=== PATIENT | male | born 1985 | race Caucasian/White ===

== ENCOUNTER 2017-01-18 11:50 | Emergency (ER) | payer OTHER ==
[~2017-01-18] VITALS: Ht 182.9 cm; Wt 72.6 kg
[2017-01-18 11:53] VITALS: BP 139/85
--- NOTE | 2017-01-18 13:57 | ED NECK/BACK PAIN COMPLAINT ---
History of Present Illness General Chief Complaint: Lower Extremity Problems Stated Complaint: LEGS ARE NUMB Source: patient Exam Limitations: no limitations Vital Signs & Intake/Output Vital Signs & Intake/Output Vital Signs Date Time Temp Pulse Resp B/P Pulse O2 O2 Flow FiO2 Ox Delivery Rate 01/18 1153 97.8 62 18 139/85 100 Room Air Room Air Allergies Coded Allergies: amoxicillin (Intermediate, RESP DISTRESS 01/18/17) doxycycline (Intermediate, RESP DISTRESS 01/18/17) Reconcile Medications No Known Home Medications Triage Note: TRIAGE: 31 Y/O MALE PRESENTS C/O BILATERAL LEG NUMBNESS SINCE THIS MORNING UPON WAKING. REPORTS, "I'VE BEEN HAVING ISSUES FOR MONTHS. WHEN I WOKE UP THIS MORNING, I COULDN'T MOVE MY LEGS AND THEY'RE BOTH WEAK RIGHT NOW." HISTORY OF LYME DISEASE. Triage Nurses Notes Reviewed? yes HPI: Darion Ornelas is a 31 yo m w/ herniated disc status post laminectomy L5- S1 and remote Lyme disease presenting to ED for RLE weakness. Patient states he has known herniated disc at levels S1 and mild facet arthropathy and spondylosis at other levels who presents to the ED today for bilateral lower extremity numbness. Patient states that the right leg is worse than the left. He woke up this morning and was unable to move his lower leg or have any sensation of it. After few seconds he states he was able to move it and then able to ambulate. Patient ambulated into the emergency department without any issues. Denies any issues with bowel or bladder function. He urinated normally this morning without any issues and starting or ending stream. He does however endorse increased urinary frequency. No dysuria. Patient states he has been sexually active with 1 partner over the past few weeks and did not use condoms. He does that he has an appointment with Dr. MARTINEZ at [place] in April for possible surgical intervention. Patient denies IV drug use, fevers, chills, abdominal pain, nausea/vomiting/diarrhea, chest pain, shortness of breath or cough. (RONY SOUZA MD) Past History Travel History Traveled to [place] past 21 day No Medical History Any Pertinent Medical History? see below for history Neurological: LYME DISEASE Musculoskeletal: disk herniation Surgical History Surgical History: laminectomy Psychosocial History Tobacco Use: Never used ETOH Use: denies use Illicit Drug Use: denies illicit drug use Family History Hx Contributory? No (RONY SOUZA MD) Review of Systems Review of Systems Constitutional: Reports: weakness. Eyes: Reports: no symptoms. Ears, Nose, Throat, Mouth: Reports: no symptoms. Respiratory: Reports: no symptoms. Cardiovascular: Reports: no symptoms. Gastrointestinal/Abdominal: Reports: no symptoms. Musculoskeletal: Reports: see HPI. Skin: Reports: no symptoms. Neurological/Psychological: Reports: numbness, tingling. Denies: ataxia, paresthesia. All Other Systems: Reviewed and Negative (RONY SOUZA MD) Physical Exam Physical Exam General Appearance: well developed/nourished, no apparent distress, alert, awake Head: atraumatic, normal appearance Eyes: Bilateral: normal appearance, PERRL, EOMI, normal inspection. Ears, Nose, Throat, Mouth: hearing grossly normal Neck: normal inspection, supple, full range of motion Respiratory: normal breath sounds, chest non-tender, no respiratory distress Cardiovascular: regular rate/rhythm Gastrointestinal: normal bowel sounds, soft, non-tender Genital/Rectal: normal genital exam, normal rectal exam, normal rectal tone, bilateral + cremesteric Back: normal inspection, normal range of motion Extremities: non-tender, normal range of motion Straight Leg Raising: Right: Negative. Left: Negative. Sensory: Medial Le: L4R, L4L. Top of Foot: 2: L5R, L5L. Sole of Foot: 2: SIR, DYLLAN. Motor: Deficit L4 Right: No Deficit L4 Left: No Deficit L5 Right: No Deficit L5 Left: No Deficit S1 Right: No Deficit S1 Right: No Walk on Heels: 5: L4 Left, L4 Right. DTR: Deficit L4 Left: No Deficit L4 Right: No Deficit S1 Left: No Deficit S1 Right: No Neurologic/Psych: no motor/sensory deficits, awake, alert, oriented x 3, normal gait, normal mood/affect, welcome center agent II-XII nml as tested Skin: intact, normal color (RONY SOUZA MD) Progress Differential Diagnosis: cauda equina syn, herniated disc, spinal cord inj, T/L spine injury Plan of Care: Orders Procedure Date/time Status CHLAMYDIA-GC DNA PROBE 01/18 1257 Active URINALYSIS 01/18 1257 Complete Laboratory Tests 01/18/17 1300: Urine Color STRAW, Urine Clarity CLEAR, Urine pH 7.5, Ur Specific [place] 1.010, Urine Protein NEG, Urine Ketones NEG, Urine Nitrite NEG, Urine Bilirubin NEG, Urine Urobilinogen 0.2, Ur Leukocyte Esterase NEG, Ur Microscopic EXAM NOT REQUIRED, Urine Hemoglobin NEG, Urine Glucose NEG Microbiology 01/18 1300 URINE ROUT: GC DNA Probe - RECD 01/18 1300 URINE ROUT: Chlamydia DNA Probe (JOHN) - RECD Patient is an otherwise well-appearing 31-year-old male with known disc disease. He endorses lower extremity weakness with the right side being weaker than the other. He approximates the weakness at approximately 50%. However physical exam findings do not support any weakness. Patient has completely normal motor as well as sensory function in bilateral lower extremities. He is able to ambulate around the department to and from the bathroom without issues. He does not fall or have any kind of ataxic gait. He denied any trauma to the area. 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 We'll assess for possible urinary tract infection as the patient does endorse increased urinary frequency will also assess for sexually transmitted infection with a GC probe in the urine given his recent unprotected sex. Patient states he had one chlamydial infection proximally 17 months ago which was treated appropriately. Given patient's otherwise normal neuro exam, encourage symptomatic treatment with physical therapy. Also recommended that the patient will move up his neurosurgical evaluation with Dr. MARTINEZ from April to a closer date. (RONY SOUZA MD) Departure Departure Time of Disposition: 1350 Disposition: HOME OR SELF CARE Condition: Stable Clinical Impression Primary Impression: Herniated lumbar intervertebral disc Ruled Out Impressions: Herniated lumbar disc without myelopathy Referrals: RASHEEDA CALDWELL MD (PCP/Family) Additional Instructions: Please follow up with her primary care doctor. Equally, you need to follow-up with one of the neurosurgeons (Dr. Martinez) sooner rather than later for possible surgical intervention of your ongoing disc disease. Likely, your appointment in April has to be moved up sooner for new or ongoing issues. Since you are having subjective symptoms of leg weakness, it might be necessary to have a repeat MRI performed as an outpatient. If you have difficulty urinating, difficulty having a bowel movement or decrease in ability to ambulate please return to the emergency Department as soon as possible for further evaluation. Departure Forms: Customer Survey General Discharge Information Prescriptions: Current Visit Scripts No Known Home Medications (RONY SOUZA MD) PA/BAGGAGE AGENT SUPERVISOR Co-Sign Statement Statement: ED Attending supervision documentation- [] I saw and evaluated the patient. I have also reviewed all the pertinent lab results and diagnostic results. I agree with the findings and the plan of care as documented in the PA's/BAGGAGE AGENT SUPERVISOR's documentation. x I have reviewed the ED Record and agree with the PA's/BAGGAGE AGENT SUPERVISOR's documentation. [] Additions or exceptions (if any) to the PAs/BAGGAGE AGENT SUPERVISOR's note and plan are summarized below: [] (RISHI VIDALES,FERMIN)
== END 2017-01-18 14:02 ==
LOC: ERH 11:50
DX: M51.26 Other intervertebral disc displacement, lumbar region (principal)
CPT/HCPCS: 81003; 87491; 87591